=== PATIENT | male | born 1965 | race Caucasian/White ===

== ENCOUNTER 2019-01-10 08:00 | Outpatient (CLI) | payer OTHER | END 2019-01-10 09:00 | disposition home or self-care (01) | LOC: NUCLEAR 08:00 | DX: C82.01 Follicular lymphoma grade I, lymph nodes of head, face, and neck (principal) | CPT/HCPCS: 78815; A9552 ==

== ENCOUNTER 2019-08-03 09:03 | Outpatient (CLI) | payer OTHER | END 2019-08-03 09:22 | disposition home or self-care (01) | LOC: NUCLEAR 09:03 | DX: C82.04 Follicular lymphoma grade I, lymph nodes of axilla and upper limb (principal); C82.02 Follicular lymphoma grade I, intrathoracic lymph nodes | CPT/HCPCS: 78815; A9552 ==

== ENCOUNTER 2020-07-02 08:47 | Outpatient (CLI) | payer OTHER | END 2020-07-02 09:04 | disposition home or self-care (01) | LOC: NUCLEAR 08:47 | PROVIDERS: ATTEND Internal Medicine Hematology & Oncology | DX: I10 Essential (primary) hypertension (principal); C82.01 Follicular lymphoma grade I, lymph nodes of head, face, and neck; C82.02 Follicular lymphoma grade I, intrathoracic lymph nodes | CPT/HCPCS: 78816; A9552 ==

== ENCOUNTER 2021-10-08 07:10 | Outpatient (CLI) | payer OTHER | END 2021-10-08 07:12 | disposition home or self-care (01) | LOC: NUCLEAR 07:10 | PROVIDERS: ATTEND Internal Medicine Hematology & Oncology | DX: C82.01 Follicular lymphoma grade I, lymph nodes of head, face, and neck (principal); C82.02 Follicular lymphoma grade I, intrathoracic lymph nodes | CPT/HCPCS: 78815; A9552 ==

== ENCOUNTER 2023-03-04 07:46 | Outpatient (CLI) | payer OTHER | END 2023-03-04 07:47 | disposition home or self-care (01) | LOC: NUCLEAR 07:46 | PROVIDERS: ATTEND Internal Medicine Hematology & Oncology | DX: C82.01 Follicular lymphoma grade I, lymph nodes of head, face, and neck (principal); C82.02 Follicular lymphoma grade I, intrathoracic lymph nodes | CPT/HCPCS: 78815; A9552 ==

== ENCOUNTER 2025-01-05 07:15 | Outpatient (CLI) | payer OTHER | END 2025-01-05 07:16 | disposition home or self-care (01) | LOC: NUCLEAR 07:15 | PROVIDERS: ATTEND Internal Medicine Hematology & Oncology | DX: C82.01 Follicular lymphoma grade I, lymph nodes of head, face, and neck (principal); C82.02 Follicular lymphoma grade I, intrathoracic lymph nodes | CPT/HCPCS: 78815; A9552 ==